=== PATIENT | male | born 1945 | race Caucasian/White ===

== ENCOUNTER 2018-01-19 17:29 | Inpatient (IN) | payer MEDICARE ==
[~2018-01-19] VITALS: Ht 175.3 cm; Wt 61.7 kg
[~2018-01-19 17:29] MED LIST: HYDR-4683 PO; ONDA8MIS3 PO
[2018-01-19] MEDS ORDERED: SODIUM CHLORIDE 0.9% 1,000 ML IV ONE (17:35)
[2018-01-19 18:11] LABS: INR 2.08 (0.9-1.15); Partial Thromboplastin Time 47.1 sec (23.78-33.04); Prothrombin Time 21.4 sec (9.27-12.13)
[2018-01-19 18:23] LABS: Basophils # (auto) 0 uL; Basophils % (auto) 0.2 % (0.0-2.0); Eosinophils # (auto) 0 uL; Eosinophils % (auto) 0.1 % (0.0-7.0); Hematocrit 33.4 % (41.0-53.0); Hemoglobin 9.7 g/dL (13.5-17.5); Lymphocytes # (auto) 2.7 uL; Lymphocytes % (auto) 10.8 % (10.0-50.0); Mean Corpuscular Hemoglobin 28.8 pg (28.0-32.0); Mean Corpuscular Hgb Conc. 29.1 g/dL (32.0-36.0); Mean Corpuscular Volume 99.1 fL (80.0-100.0); Monocytes # (auto) 1.7 uL; Monocytes % (auto) 6.8 % (0.0-12.0); Neutrophils # (auto) 20.2 uL; Neutrophils % (auto) 82.1 % (37.0-80.0); Nucleated Red Blood Cells % 0.1 %; Platelet Count (auto) 215 10^3/uL (140-450); Red Blood Cells 3.37 10^6/uL (4.5-5.90); Red Cell Distribution Width 17.1 % (11.8-14.3); White Blood Cell 24.6 10^3/uL (4.4-10.8)
[2018-01-19] MEDS ORDERED: NOREPINEPHRINE 8 MG/250ML KIT 250 ML IV ONE (18:29)
[2018-01-19] MEDS ORDERED: PIPERACILLIN-TAZOB 3.375GM 100 ML IV ONE (18:30)
[2018-01-19 18:33] LABS: Albumin 2.8 g/dL (3.4-5.0); BUN/Creatinine Ratio 10.7; Bilirubin, Total 0.8 mg/dL (0.2-1.0); Calcium 8.7 mg/dL (8.5-10.1); Potassium 4.3 mmol/L (3.5-5.1)
[2018-01-19] MEDS: NOREPINEPHRINE 8 MG/250ML KIT 250 ML IV SCH (18:43)
[2018-01-19] MEDS ORDERED: SODIUM BICARBONATE 8.4 % INJ 50ML VIAL IV ONE ×2 (19:15→21:36)
[2018-01-19] MEDS: SODIUM CHLORIDE 0.9% 1,000 ML IV SCH (19:15)
[2018-01-19] MEDS ORDERED: MIDAZOLAM DRIP 50 mg/50mL 50 ML IV ONE (19:34)
[2018-01-19] MEDS: MIDAZOLAM DRIP 50 mg/50mL 50 ML IV SCH (19:39)
[2018-01-19 19:56] LABS: Lactic Acid w/Reflex 11.1 mmol/L (0.4-2.0)
[2018-01-19] MEDS ORDERED: DOPamine 1600MCG/ML D5W 250 ML IV ONE (20:15)
[2018-01-19] MEDS ORDERED: ALBUMIN 5% 250 ML IV ONE ×2 (21:00→22:00)
[2018-01-19] MEDS ORDERED: PANTOPRAZOLE 40 MG/10 ML VIAL IV ONE (21:00)
[2018-01-19] MEDS ORDERED: MORPHINE SULF INJ 2 MG/ML SYRINGE 1ML IV PRN (21:00)
[2018-01-19] MEDS ORDERED: ACETAMINOPHEN 325 MG TAB PO PRN (21:00)
[2018-01-19] MEDS ORDERED: NITROGLYCERIN 0.4 MG SL TAB SL PRN (21:00)
[2018-01-19] MEDS ORDERED: ALBUTEROL SULF 2.5 MG/0.5ML(0.5%) NEB SOLN NEB PRN (21:00)
[2018-01-19] MEDS ORDERED: ONDANSETRON HCL 4 MG/2 ML VIAL IV PRN (21:00)
[2018-01-19] MEDS ORDERED: ALBUMIN 5% 500 ML IV ONE (21:04)
[2018-01-19] MEDS: SODIUM BICARBONATE 8.4 % INJ 50ML VIAL IV ONE ×2 (21:31→21:46)
[2018-01-19] MEDS ORDERED: VASOPRESSIN 50 UNITS in D5W 5% 247.5 ML IV ONE (21:45)
[2018-01-19] MEDS: SODIUM BICARBONATE 50ML VIAL 100 ML in SOD CHL 0.45% 1,000 ML IV SCH (21:46)
[2018-01-19 22:02] VITALS: BP 58/42
[2018-01-19] MEDS: CLINDAMYCIN 900MG IV 50 ML IV SCH (22:24)
[2018-01-20] VITALS (67 sets, daily range): BP systolic 49–126; BP diastolic 24–73
[2018-01-20] MEDS: PIPERACILLIN-TAZOB 2.25GM 50 ML IV SCH ×4 (00:19→19:59)
[2018-01-20] MEDS ORDERED: EPINEPHrine HCL INJECTION 4 MG in SODIUM CHL 0.9% 250 ML IV SCH (01:00)
[2018-01-20] MEDS ORDERED: VASOPRESSIN 20 UNIT/ML ONE ×5 (01:35→04:12)
[2018-01-20] MEDS ORDERED: EPINEPHrine HCL 250 ML IV ONE (02:10)
[2018-01-20] MEDS ORDERED: SODIUM BICARBONATE 8.4 % INJ 50ML VIAL IV ONE ×2 (03:20→04:30)
[2018-01-20] MEDS ORDERED: SODIUM BICARBONATE 8.4% INJ 50ML SYRINGE ONE ×2 (04:22→05:30)
[2018-01-20] MEDS ORDERED: ALBUMIN 5% 250 ML IV ONE (04:30)
[2018-01-20 04:41] LABS: Lactic Acid w/Reflex 10.1 mmol/L (0.4-2.0)
[2018-01-20 05:21] LABS: Basophils # (auto) 0 uL; Eosinophils # (auto) 0 uL; Hemoglobin 7.3 g/dL (13.5-17.5); Mean Corpuscular Hgb Conc. 29.5 g/dL (32.0-36.0); Monocytes # (auto) 0.2 uL; Monocytes % (auto) 2.8 % (0.0-12.0); White Blood Cell 6.2 10^3/uL (4.4-10.8)
[2018-01-20 05:22] LABS: Basophils % (auto) 0.1 % (0.0-2.0); Hematocrit 24.7 % (41.0-53.0); Lymphocytes # (auto) 0.7 uL; Lymphocytes % (auto) 11.5 % (10.0-50.0); Mean Corpuscular Hemoglobin 29.2 pg (28.0-32.0); Neutrophils # (auto) 5.3 uL; Neutrophils % (auto) 85.6 % (37.0-80.0); Nucleated Red Blood Cells % 0.3 %; Platelet Count (auto) 119 10^3/uL (140-450)
[2018-01-20 05:38] LABS: Anion Gap 22 (5-15); BUN/Creatinine Ratio 11.1; Blood Urea Nitrogen 30 mg/dL (7-18); Carbon Dioxide 11 mmol/L (21-32); Chloride 114 mmol/L (98-107); GFR African American 30 mL/min; GFR Non-African American 25 mL/min; Glucose 199 mg/dL (74-106); Potassium 3.2 mmol/L (3.5-5.1); Sodium 147 mmol/L (136-145)
[2018-01-20] MEDS: SODIUM CHLORIDE 0.9% 1,000 ML IV SCH (05:38)
[2018-01-20 05:41] LABS: Alkaline Phosphatase 107 U/L (45-117); Bilirubin, Total 0.6 mg/dL (0.2-1.0)
[2018-01-20 06:05] LABS: Alanine Aminotransferase 279 U/L (16-61); Albumin 1.5 g/dL (3.4-5.0); Aspartate Aminotransferase 608 U/L (15-37); Total Protein 3.1 g/dL (6.4-8.2)
[2018-01-20 06:07] LABS: Calcium 5.4 mg/dL (8.5-10.1)
[2018-01-20] MEDS ORDERED: CALCIUM GLUC 4.65meq/50ml D5AE 50 ML IV STA (06:09)
[2018-01-20] MEDS: CLINDAMYCIN 900MG IV 50 ML IV SCH ×3 (06:34→22:23)
[2018-01-20] MEDS: SODIUM BICARBONATE 50ML VIAL 100 ML in SOD CHL 0.45% 1,000 ML IV SCH ×2 (08:20→21:00)
[2018-01-20] MEDS ORDERED: PANTOPRAZOLE 40 MG/10 ML VIAL IV SCH (10:00)
[2018-01-20] MEDS ORDERED: SODIUM CHLORIDE 0.9% 2,000 ML IV ONE ×2 (11:30→11:45)
[2018-01-20] MEDS ORDERED: POTASSIUM CHL 20MEQ/100ML 100 ML IV ONE (11:30)
[2018-01-20 13:45] LABS: Basophils # (auto) 0 uL; Basophils % (auto) 0.1 % (0.0-2.0); Monocytes # (auto) 0.1 uL
[2018-01-20 13:47] LABS: Eosinophils # (auto) 0.1 uL; Eosinophils % (auto) 1.9 % (0.0-7.0); Lymphocytes # (auto) 0.4 uL; Lymphocytes % (auto) 5.8 % (10.0-50.0); Mean Corpuscular Hgb Conc. 30.4 g/dL (32.0-36.0); Mean Corpuscular Volume 98.9 fL (80.0-100.0); Neutrophils # (auto) 7.1 uL; Neutrophils % (auto) 91.2 % (37.0-80.0); Platelet Count (auto) 89 10^3/uL (140-450); Red Blood Cells 1.92 10^6/uL (4.5-5.90); Red Cell Distribution Width 16.8 % (11.8-14.3); White Blood Cell 7.8 10^3/uL (4.4-10.8)
[2018-01-20 13:58] LABS: Hemoglobin 5.8 g/dL (13.5-17.5)
[2018-01-20] MEDS: NOREPINEPHRINE 8 MG/250ML KIT 250 ML IV SCH (14:07)
[2018-01-20 14:10] LABS: Albumin 1.3 g/dL (3.4-5.0); BUN/Creatinine Ratio 11.9; Potassium 3.1 mmol/L (3.5-5.1)
[2018-01-20 14:23] LABS: Bilirubin, Total 0.6 mg/dL (0.2-1.0); Total Protein 2.5 g/dL (6.4-8.2)
[2018-01-20 14:50] LABS: Calcium 5.2 mg/dL (8.5-10.1)
[2018-01-20] MEDS ORDERED: DEXTROSE 50% SYRINGE 50 ML IV ONE (15:04)
[2018-01-20] MEDS ORDERED: DEXTROSE 10% 1,000 ML IV ONE (15:30)
[2018-01-20] MEDS ORDERED: EPINEPHrine HCL 250 ML IV SCH (15:44)
[2018-01-20] MEDS ORDERED: VASOPRESSIN 50 UNITS in D5W 5% 247.5 ML IV SCH (15:45)
[2018-01-20] MEDS: MIDAZOLAM DRIP 50 mg/50mL 50 ML IV SCH (19:09)
[2018-01-21] MEDS ORDERED: ALLO100T PO (02:52)
[2018-01-21] MEDS ORDERED: PANT40TA2 PO (03:00)
[2018-01-21] MEDS ORDERED: PATI1POW PO (03:00)
[2018-01-21] MEDS ORDERED: CARB25TA3 PO (03:00)
[2018-01-21] MEDS ORDERED: SIMV10TA84 PO (03:00)
[2018-01-21] MEDS ORDERED: DONE5TAB11 PO (03:00)
[2018-01-21] MEDS ORDERED: FERR27TA2 PO (03:00)
[2018-01-21] MEDS ORDERED: LACT10SO3 PO (03:00)
[2018-01-21] MEDS ORDERED: FURO40TA4 PO (03:00)
[2018-01-21] MEDS ORDERED: MAGN400T5 OR (03:00)
[2018-01-21] MEDS ORDERED: LEV100T GT (03:00)
[2018-01-21] MEDS ORDERED: SITA100T7 PO (03:00)
[2018-01-21] MEDS ORDERED: PANT1INJ3 IV (03:00)
== END 2018-01-20 23:15 | disposition expired | DRG 871 ==
LOC: EDBD 17:29 → ER 17:29 → TELE 17:30 → ICU WEST 01-20 13:07
PROVIDERS: ADMIT Nurse Practitioner; ATTEND Nurse Practitioner
PROC: 5A12012 Performance of Cardiac Output, Single, Manual (ICD-10-PCS; principal; 2018-01-19)
PROC: 5A1935Z Respiratory Ventilation, Less than 24 Consecutive Hours (ICD-10-PCS; 2018-01-19)
PROC: 0BH17EZ Insertion of Endotracheal Airway into Trachea, Via Natural or Artificial Opening (ICD-10-PCS; 2018-01-19)
DX: A41.9 Sepsis, unspecified organism (principal); E43 Unspecified severe protein-calorie malnutrition; G93.41 Metabolic encephalopathy; J18.9 Pneumonia, unspecified organism; J96.01 Acute respiratory failure with hypoxia; R65.21 Severe sepsis with septic shock; C18.9 Malignant neoplasm of colon, unspecified; E87.4 Mixed disorder of acid-base balance; G93.1 Anoxic brain damage, not elsewhere classified; N17.9 Acute kidney failure, unspecified; N13.1 Hydronephrosis with ureteral stricture, not elsewhere classified; D63.8 Anemia in other chronic diseases classified elsewhere; D69.6 Thrombocytopenia, unspecified; E83.51 Hypocalcemia; E87.6 Hypokalemia; I12.9 Hypertensive chronic kidney disease with stage 1 through stage 4 chronic kidney disease, or unspecified chronic kidney disease; I46.9 Cardiac arrest, cause unspecified; I70.0 Atherosclerosis of aorta; N18.9 Chronic kidney disease, unspecified; S09.90XA Unspecified injury of head, initial encounter; W19.XXXA Unspecified fall, initial encounter; Z51.5 Encounter for palliative care; Z85.038 Personal history of other malignant neoplasm of large intestine; Y92.009 Unspecified place in unspecified non-institutional (private) residence as the place of occurrence of the external cause; Z68.20 Body mass index [BMI] 20.0-20.9, adult
CPT/HCPCS: 36415; 36600; 51702; 70450; 71045; 71250; 72125; 74176; 80053; 82805; 82962; 83605; 83880; 84484; 85025; 85610; 85730; 87040; 87070; 87077; 87081; 87186; 87205; 93005; 94002; 94003; 96361; 96365; 96375; 99291; A6257; C9113; J0171; J0610; J2250; J2543; J3480; J3490; J7060